=== PATIENT | male | born 1970 | race Caucasian/White ===

== ENCOUNTER 2020-06-08 16:26 | Emergency (ER) | payer OTHER, SELFPAY ==
--- NOTE | ~2020-06-08 | XR_ITS ---
EXAMINATION: XR chest 2V DATE: 06/08/2020 17:09 INDICATION: Cough TECHNIQUE: PA and lateral views of the chest are obtained. COMPARISON: None available FINDINGS: The lungs are free of acute opacities. There is no pleural effusion or pneumothorax. The ca rdiomediastinal silhouette is normal. The visualized bones and soft tissues are unremarkable. IMPRESSION: 1. No acute cardiopulmonary abnormality. Reviewed, dictated and finalized at location A. GHT INSPECTOR
[2020-06-08 16:46] VITALS: BP 133/89; PULSE 67; RESP 16; TEMP 36.6; O2SAT 100
--- NOTE | 2020-06-08 17:05 | ED.URI ---
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 and has attempted to start decreasing his usage over the last couple months when he started vaping 5 years ago he was using 21 mg a day and is down to 6 mg a day but freely acknowledges that he is a boredom/anxiety smoker He is coughing sporadically enough that he starts to throw up; has had multiple prior to that this week; denies nasal drainage, fever, otherwise nausea diarrhea and vomiting only in relation to coughing Related Data Allergies Allergy/AdvReac Type Severity Reaction Status Date / Time codeine Allergy Nausea Verified 06/08/20 16:45 Review of Systems Review of Systems: Narrative: CONSTITUTIONAL: Denies fever, chills, sweats. EYES: Denies visual changes, redness, discharge. ENT: Denies rhinorrhea, congestion, sore throat, otalgia. CARDIOVASCULAR: Denies chest pain, palpitations, edema. RESPIRATORY: Denies dyspnea, wheezing, moderate cough that is spastic to the point of causing vomiting GASTROINTESTINAL: Denies abdominal pain, nausea, vomiting, diarrhea. GENITOURINARY: Denies dysuria, hematuria, abnormal discharge SKIN: Denies rash or itching. NEUROLOGIC: Denies numbness, or focal weakness. PSYCHIATRIC: Denies anxiety or depression. PMFSH Past Medical History Medical History Tobacco abuse Family History Family History Other No acute medical problems Social History Social History Smoking status: Current every day smoker Tobacco type: e-cigarettes/vaping Alcohol intake: current Alcohol use details: Only occasional use Comments At time of signature, I agree with nursing past medical, surgical, social and family history. There is no relevant family history pertinent to the presenting complaint. Exam Narrative: Exam Narrative: GENERAL: This is a well-nourished, well-developed patient, in mild distress. Social spastic coughing HEAD: normocephalic, atraumatic. EYES: Sclera clear/white. Vision is grossly intact. EARS: External ears normal, auditory canals clear and without drainage, TMs normal without perforation. Hearing grossly intact. NOSE: External nose normal without nasal discharge, nares without redness, no rhinorrhea. THROAT: Mucous membranes moist, posterior pharynx erythema no exudate or edema NECK: Neck supple, non-tender CARDIOVASCULAR: Regular rate and rhythm without murmurs, gallops, or rubs. RESPIRATORY: Coarse r to auscultation. Breath sounds equal bilaterally. No wheezes, rales, or rhonchi. GASTROINTESTINAL: Abdomen soft, , SKIN: warm, intact with no suspicious lesions or rash, good texture and turgor. NEURO: awake, alert, and oriented to person, place and time. There were no obvious focal neurologic abnormalities. Steady gait EXTREMITIES: Normal range of motion. BACK: Nontender without deformity Course Course Emergency Course: [facility] of [place] coughing that causes vomiting intermittently has had this cough since February and is getting worse Started on Zithromax, prednisone, Zyrtec, cough medication, cefaclor lozenges-last use of these and bronchitis Follow-up with his primary care physician Vital Signs Vital signs: Vital Signs Temperature 97.8 F 06/08/20 16:46 Pulse Rate 67 06/08/20 16:46 Respiratory Rate 16 06/08/20 16:46 Blood Pressure 133/89 06/08/20 16:46 Pulse Oximetry 100 06/08/20 16:46 Temperature 97.8 F 06/08/20 16:46 Pulse Rate 67
== END 2020-06-08 17:30 | disposition home or self-care (01) ==
PROVIDERS: Emergency Provider Nurse Practitioner
DX: J40 Bronchitis, not specified as acute or chronic (principal); F17.200 Nicotine dependence, unspecified, uncomplicated
CPT/HCPCS: 71046; 99213; G0463

== ENCOUNTER 2022-05-23 03:02 | Day surgery (SDC) | payer OTHER, SELFPAY ==
[2022-05-09 13:49] VITALS: BMI 24.7
--- NOTE | 2022-05-09 13:54 | PC.NURSE ---
Report to the Outpatient Waiting Room, entrance under the green pavilion located off [facility], at time 0700 on date 05/23/22. Planned Procedure Time: 0930. Time changes happen often and if your time is changed the preop area will call you the afternoon before. - You and your visitor will be asked to self-screen and do not enter if you have any COVID symptoms. - Only one visitor is requested with a max of two and NO children visitors are allowed at this time. - The patient visitor may be requested to leave or wait in car when not with patient due to distancing restrictions. - A mask is REQUIRED within the hospital. Patients may have clear liquids (water, carbonated beverages, clear teas, apple juice) until 3 hours prior to surgery with a maximum of 20 ounces. - No food from midnight until time of surgery Take the following medications with a SIP of water the morning of surgery: N/A Medications to discontinue per physician: N/A Date to take last dose: N/A Please no make-up, nail tanzanian, hairspray, perfume, deodorant, or body powder the day of surgery. No jewelry (including any body piercings) or valuables the day of surgery, leave them at home. Please take a shower or bath the night before, or the morning of, surgery with an antibacterial soap. Wear comfortable, loose fitting clothing. - Jewelry must be removed prior to entering the operating room. Rings and piercings that are not removed may be cut off. - The hospital will not accept responsibility for valuables. - Please leave all valuables, including medications, at home the day of surgery. If you are going home after surgery, a licensed delivery driver assistant must drive you home. - NO public transportation without another adult if you receive anesthesia. - We recommend that an adult stay with you for 24 hours following discharge. - We also recommend that you do not drive, make important decision, drink alcoholic beverages, or take any drugs that were not prescribed by your health care provider for at least 24 hours after your discharge time. Follow any additional instructions given to you from your surgeon. If you or anyone in your household have experienced Covid symptoms in the past week, please notify your surgeon or the nurse liaison at the phone number below for possible testing. Telephone instructions given to PT - [facility] and asked if any additional questions and then verbalized understanding. Patient advised to call surgeon office or pre surgery nurse liaison [phone] if any additional questions.
[2022-05-23] VITALS (9 sets, daily range): BP systolic 107–123; BP diastolic 74–87; PULSE 57–74; RESP 14–19; TEMP 36.1–36.4; O2SAT 98–100
--- NOTE | ~2022-05-23 | NM_ITS ---
EXAMINATION: NM sentinel node w imaging INDICATION: Melanoma of the left shoulder TECHNIQUE: 0.555 mCi Tc 99m Lymphoseek were injected in to aliquots in the left shoulder near the tanna anoma excision site. FINDINGS: A [place] lymph node is identified in the left axilla. IMPRESSION: 1. Status post left shoulder sentinel lymph node radiopharmaceutical injection. Reviewed, dictated and finalized at location A. UTIVE RECEPTIONIST
--- NOTE | 2022-05-23 07:08 | WPDHPUPDATE1 ---
History and Physical Update Update Date/Time: 05/23/22 07:08 History and Physical has been reviewed, including an updated exam of the patient. There are NO changes in the patient's condition. Risks, benefits, and alternatives have been discussed and questions answered. Patient agrees to proceed with procedure.
--- NOTE | 2022-05-23 07:35 | P.PNAN_ITS ---
Anes - Initial Pre Proc Eval Procedure: Operation Date: 05/23/22 09:30 Proposed Procedures p Excision of Junctional Melanocytic Proliferation Right Low Paraspinous Back Wide Excision Melanoma Left Shoulder with [place] Lymph Node Biopsy - Harshil Botello MD Date/Time: 05/23/22 07:35 Surgeon: Harshil Botello MD Pre Op Diagnosis: Junctional Melanocytic Proliferation Patient Data Age: 51 Gender: M Height: 1.88 m Weight: 87.54 kg Allergies Allergy/AdvReac Type Severity Reaction Status Date / Time codeine AdvReac Mild NAUSEA Verified 05/23/22 07:28 Home Medications Medication Instructions Recorded Confirmed Type No Home Medications 05/09/22 05/09/22 History Patient hx anesthesia problems: none Family hx anesthesia problems: none Results Review: All pre-operative results and documents have been reviewed as part of the pre- operative evaluation. [facility] Past Medical History Medical History (Updated 05/23/22 @ 07:39 by Oswaldo Silva DO) IBS (irritable bowel syndrome) Tobacco abuse Surgical History Surgical History (Updated 05/23/22 @ 07:39 by Oswaldo Silva DO) Hx of lumbar discectomy L4-5 Family History Family History (System 04/25/22 @ 10:33 by Mignon Meza) Other No acute medical problems Social History Social History (System 04/25/22 @ 10:33 by Mignon Meza) Smoking status: Current every day smoker Tobacco type: e-cigarettes/vaping Alcohol intake: never Alcohol use details: Only occasional use Substance use: never Substance use type: does not use Living arrangements: with family Spiritual care concerns: No Anes - Eval Final PreProcedure Day of Procedure 05/23/22 07:35 Patient weight: normal Heart: regular rate and rhythm Lungs: clear to auscultation and normal air movement Airway: Mallampati scale class II Neurological: alert and oriented Last oral intake: >/= 8 hours ASA classification: II Emergent: no Anesthetic plan: proceed Anesthesia type and monitoring: general ETT and standard monitoring Results Review: All pre-operative results and documents have been reviewed as part of the pre- operative evaluation. Informed Consent: The patient's anesthetic plan and its attendant risks and benefits were discussed with the patient/family/POA. Questions were solicited and answers provided to the satisfaction of the patient/family/POA.
[2022-05-23] MEDS: LACTATED RINGERS 1,000 ML 30 ML IV CONT ×2 (07:54→12:48)
--- NOTE | 2022-05-23 18:01 | P.OP_ITS ---
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 Left axillary sentinel lymph node biopsy 1cm excision of junctional melanocytic proliferation of the right lower paraspinous back with intermediate repair 1.5 cm Surgeon Harshil Botello MD Supervisor [employer] [place] Anesthesia General Indications Malignant melanoma of the left shoulder with present low thickness 0 point 9 mm Biopsy-proven junctional melanocytic proliferation Description of Procedure In the holding area the sites on this patient were marked. He had already been to nuclear Medicine earlier in the morning and had a sentinel lymph node identified in the left axilla. The tumor sites had been biopsied previously and were re-identified. He was taken to the operating room and placed supine on the operating table. We elected to perform the surgeries in supine position to start and to turn him to the side for the excision of lesion from his back. The left upper chest and shoulder were prepped and draped in usual fashion including the axilla. The gamma probe clearly identified the presence of a detectable lesion.. The marking on the left shoulder was made with 1 cm margin around the tumor site. These areas were infiltrated in dermis with 1% lidocaine with epinephrine. The node biopsy was done 1st with a curving incision in the anterior axilla. Passed through the subcutaneous tissue just entering axillary fascia the the lymph node was not visually identifiable but somewhat palpable the gamma probe clearly indicated.. Was taken off with cautery. No clips or sutures were applied there. The wound was closed with superficial fascia 3-0 Vicryl. The skin was closed interrupted 3-0 Vicryl and glue. The lesion on the shoulder was marked the 1 cm margin around the proximally 1 cm tumor area. The excision was carried down to include some superficial deep fascia. The specimen was sent fresh to pathology. The wound required undermining of about a cm in all directions and coaptation was intradermal 3-0 Vicryl suture and Dermabond. The patient was then rotated to his left side carefully padding pressure points and providing an axillary roll. The smaller lesion was then marked for excision and infiltrated with 1% lidocaine with epinephrine takeoff into the superficial fascia. It was sent in from on for permanent section. That wound was closed with interrupted 3-0 Vicryl and 5 0 nylon. Appropriate bandages were applied to to tumor sites and now discharged from the operating stable condition He is being discharged home with a prescription hydrocodone 6. Estimated Blood Loss -5.0 Drains No Packing No Pathology Yes Complications No immediate complications Condition Stable Disposition Same day
== END 2022-05-23 14:25 | disposition home or self-care (01) ==
PROVIDERS: Visit Provider Plastic Surgery
PROC: (CPT 11603; principal; 2022-05-23 09:30)
DX: D03.62 Melanoma in situ of left upper limb, including shoulder (principal); L81.4 Other melanin hyperpigmentation; F17.290 Nicotine dependence, other tobacco product, uncomplicated
CPT/HCPCS: 11603; 11401; 12034; 38525; 78195; 88305; 88307; 88342; A9270; A9520; J0330; J1100; J2250; J2370; J2405; J2704; J3010; J7120

== ENCOUNTER 2023-12-22 13:37 | Emergency (ER) | payer OTHER, SELFPAY ==
[2023-12-22 13:54] VITALS: BP 127/79; PULSE 74; RESP 20; TEMP 37.2; O2SAT 100
--- NOTE | 2023-12-22 14:18 | ED.LOWEXIN ---
HPI - Extremity Injury (Lower) General Chief Complaint: Extremity Injury, Lower Stated Complaint: Right foot big toe injury Time Seen by Provider: 12/22/23 14:18 Source: patient Mode of arrival: ambulatory Limitations: no limitations History of Present Illness HPI Narrative: 53-year-old male presents with complaint of pain and swelling to right great toe and dorsal aspect of right foot. Patient states he was upset and angry today and kicked garage door while wearing boots. Had instant pain to right great toe. Pain worse when bearing weight. Ambulatory with limp. All systems reviewed and negative except as noted above. Related Data Allergies Allergy/AdvReac Type Severity Reaction Status Date / Time codeine AdvReac Mild NAUSEA Verified 05/23/22 07:28 Review of Systems Review of Systems: CONSTITUTIONAL: Denies fever, chills, or sweats. EYES: Denies visual changes, redness, or discharge. ENT: Denies rhinorrhea, congestion, sore throat, or otalgia. CARDIOVASCULAR: Denies chest pain, palpitations, or edema. RESPIRATORY: Denies cough or dyspnea. GASTROINTESTINAL: Denies abdominal pain, nausea, vomiting, or diarrhea. GENITOURINARY: Denies dysuria or hematuria. SKIN: Denies rash or itching. MUSCULOSKELETAL: Denies back pain, joint pain, or myalgia. Reports pain to right great toe, dorsal aspect right foot. NEUROLOGIC: Denies headache, numbness, or weakness. PSYCHIATRIC: Denies anxiety or depression. All other systems reviewed are negative, except as documented in HPI. [facility], [facility] Past Medical History Medical History (Updated 12/22/23 @ 14:31 by Nan Soares NP) IBS (irritable bowel syndrome) Tobacco abuse Surgical History Surgical History (Updated 05/23/22 @ 07:39 by Oswaldo Silva DO) Hx of lumbar discectomy L4-5 Family History Family History (System 04/25/22 @ 10:33 by Mignon Meza) Other No acute medical problems Social History Social History (System 04/25/22 @ 10:33 by Mignon Meza) Smoking status: Current every day smoker Tobacco type: e-cigarettes/vaping Alcohol intake: never Alcohol use details: Only occasional use Substance use: never Substance use type: does not use Living arrangements: with family Spiritual care concerns: No Comments At time of signature, agree with nursing past medical, surgical, social and family history. There is no relevant family history pertinent to the presenting complaint. Exam Narrative: GENERAL: This is a well-nourished, well-developed patient, in no apparent distress. HEAD: normocephalic, atraumatic. EYES: PERRL. Sclera clear/white. Vision is grossly intact. EARS: External ears normal NOSE: External nose normal NECK: Neck supple, non-tender without lymphadenopathy, masses or thyromegaly. CARDIOVASCULAR: Regular rate and rhythm without murmurs, gallops, or rubs. RESPIRATORY: Clear to auscultation. Breath sounds equal bilaterally. No wheezes, rales, or rhonchi. SKIN: warm, Dry, intact with no suspicious lesions or rash, good texture and turgor. NEURO: awake, alert, and oriented to person, place and time. There were no obvious focal neurologic abnormalities. EXTREMITIES: No joint tenderness, effusion. Bruising to right great toe with swelling, tenderness on palpation. No deformity noted. Course Course Level of Care: Express Care Visit Vital Signs Vital signs: Vital Signs Temperature 37.2 C 12/22/23 13:54 Pulse Rate 74 12/22/23 13:54 Respiratory Rate 20 12/22/23 13:54 Blood Pressure 127/79 12/22/23 13:54 Pulse Oximetry 100 12/22/23 13:54 Oxygen Delivery Room Air 12/22/23 13:54 Temperature 37.2 C 12/22/23 13:54 Pulse Rate 74 12/22/23 13:54 Respiratory Rate 20 12/22/23 13:54 Blood Pressure 127/79 12/22/23 13:54 Pulse Oximetry 100 12/22/23 13:54 Oxygen Delivery Room Air 12/22/23 13:54 Reviewed MDM - Extremity Injury (Lower) MDM Narrative Medical decision making n
== END 2023-12-22 14:40 | disposition home or self-care (01) ==
PROVIDERS: Emergency Provider Nurse Practitioner Family
DX: S90.111A Contusion of right great toe without damage to nail, initial encounter (principal); W22.8XXA Striking against or struck by other objects, initial encounter
CPT/HCPCS: 73630; 99213; G0463